=== PATIENT | male | born 1935 | race Caucasian/White ===

== ENCOUNTER 2020-11-05 14:56 | Emergency (ER) | payer MEDICARE, OTHER, SELFPAY ==
[2020-11-05] VITALS (22 sets, daily range): BP systolic 127–139; BP diastolic 67–74; PULSE 64–99; RESP 20; TEMP 36.6; O2SAT 92–97
--- NOTE | 2020-11-05 15:15 | RT.EKG_ITS ---
APPROVED REPORT Exam: Resting ECG Reason for Exam: weakness Patient Location: E HR:65 bpm ECG Measurements Heart Rate 65 AXIS IN 171 P 54 QRSd 72 QRS 35 QT 362 T 47 QTc 377 Conclusion Sinus rhythm...normal P axis, V-rate 60- 99. No STEMI. I have reviewed and interpreted ECG and agree with software generated interpretation.
--- NOTE | 2020-11-05 15:35 | ED.GENADUL_ITS ---
Discharge Plan Disposition Patient Disposition: HOME Condition: Good Discharge Details Clinical Impression: H/O tinea cruris Primary Care Provider: None,None ED Provider: Ave Zambrano Home Meds and New Rx's Prescriptions: New nystatin 100,000 unit/gram powder 1 applic topical DAILY Qty: 60 RF: 0 No Action tamsulosin 0.4 MG capsule 0.4 mg PO DAILY RF: 0 Fish Oil 1 EACH capsule 1 ea PO BID RF: 0 pimecrolimus [Elidel] 30 GM cream 30 gm Topical DAILY PRNRF: 0 latanoprost 0.005 % Drops 1 drp ophthalmic (eye) DAILY RF: 0 dorzolamide 2 % Drops 1 drp ophthalmic (eye) DAILY RF: 0 Discharge Instructions Additional Instructions: Allow to air dry, wear brief with some gauze protecting the area when ambulating, limit your ambulation Use powder twice daily Use cream twice daily Return with spreading redness, fever, worsening pain, if you have rebleeding, apply pressure to the area and return if you are unable to resolve it Recheck with your primary care physician in 48 hours Discharge Data Discharge Date/Time-TO BE ENTERED AT DEPARTURE: 11/05/20 17:10 Medical Decision Making <ZAID Meyers - Last Filed: 11/06/20 19:03> Patient is alert, oriented, very pleasant, he is stable without active bleeding at time of my evaluation, so I discussed sources from the maceration He is instructed to let area air dry, pH was ordered for patient to apply twice daily He will need recheck in 48 hours by his primary care physician, will also prescribe nystatin powder for patient He should refrain from ambulating as much as possible until the wound improved, brief may be helpful with some called applied that should be changed several times daily Threshold to return given the threshold to return with new or worsening complaints Observed for 2 hours in the emergency room No history of coagulopathy, no clinical evidence of Ness's gangrene or peewee lulitis, no evidence of GI bleed or UTI clinically signed out to Ave Zambrano pending EKG and dispo Medical Records Medical records reviewed: Yes I reviewed the patient's medical records. Lab Data Lab results reviewed: Yes I reviewed the patient's lab results. <Ave Zambrano - Last Filed: 11/05/20 19:24> 1620: Care assumed from provider (ZAID Meyers) Discussed patient details and case and pending workup and disposition. Patient is hemodynamically stable, and alert and oriented. Awaiting EKG reassessment and disposition. Patient reevaluation he has no complaints at this time he feels much improved. He is tolerating p.o. fluids without difficulty he is alert and oriented. Discussed plan of care. RN at bedside applying clotrimazole cream at this time. EKG was reviewed by Nora Rico DO ER attending, official report. No old EKG available for review. No complaints of chest pain. Patient discharged in hemodynamically stable condition alert and oriented. Discussed strict return instructions and follow-up with PCP, verbalized understanding. HPI <ZAID Meyers - Last Filed: 11/06/20 19:03> General Mode of arrival: ambulatory . Date/Time Provider Initiated Documentation: 11/05/20 15:01 . Limitations to Documentation: no limitations . Information obtained by: patient . HPI Narrative: This 84-year-old gentleman presents with report of bleeding from his scrotum. Patient denies chest pain or shortness of breath. He denies any dizziness mild lightheadedness. He reportedly started bleeding after using a rest stop on the way up to his home in [facility]. He denies prior history of similar symptoms in the past. He denies any blood in his urine. He denies any blood in his stool. He denies any abdominal tenderness. He states he did bleed a fair amount, he is unsure as to how much. He states that it seems to have stopped at this time. Related Data Home Medications Medication Instructions Recorded Confirmed omega-3 fatty acids-fish oil [Fish 1 ea PO BID 10/12/13 11/05/20 Oil 1,000 mg Capsule] tamsulosin 0.4 mg PO DAILY 10/12/13 11/05/20 pimecrolimus [Elidel] 30 gm TOPICAL DAILY PRN 11/22/13 11/05/20 dorzolamide 1 drp OPHTHALMIC (EYE) DAILY 11/05/20 11/05/20 latanoprost 1 drp OPHTHALMIC (EYE) DAILY 11/05/20 11/05/20 nystatin 1 applic TOPICAL DAILY #60 g 11/05/20 Previous Rx's Medication Instructions Recorded nystatin 1 applic TOPICAL DAILY #60 g 11/05/20 Allergies Allergy/AdvReac Type Severity Reaction Status Date / Time Sulfa (Sulfonamide Allergy Unknown Unverified 11/05/20 15:03 Antibiotics) General Stated Complaint: Male Reproductive Problem VERONA: 3 Review of Systems <ZAID Meyers Last Filed: 11/06/20 19:03> All systems reviewed & are unremarkable except as noted in HPI and below PFSH <ZAID Meyers Last Filed: 11/06/20 19:03> Social History Smoking/Tobacco Use Status: Never Smoking risk assessment performed?: Yes Alcohol Intake: never Drug use: Never Substance use type: does not use Do you feel safe at home: Yes Do you feel safe in your relationship?: Yes Exam <ZAID Meyers Last Filed: 11/06/20 19:03> Const General: cooperative, comfortable and no acute distress Eyes Sclera: sclerae normal Resp Effort & Inspection: normal respiratory effort Auscultation: clear to auscultation bilaterally Cardio Rate: regular rate Rhythm: regular rhythm GI Other: No tenderness or visible sign of trauma Other: Macerated and excoriated region to right inguinal region and groin, tenderness over area of maceration, no evidence of cellulitis, new bleeding around urethra, no blood noted in stool, no obvious hemorrhoid No crepitus or visible evidence of Ness's gangrene Skin Other: Macerated lesion Neuro General: patient alert Extrem Other: No visual evidence of trauma or active bleeding Course <ZAID Meyers Last Filed: 11/06/20 19:03> Vital Signs Vital signs: Vital Signs Temperature 36.6 C 11/05/20 14:58 Pulse 99 H 11/05/20 14:58 Respiratory Rate 20 11/05/20 14:58 Blood Pressure 138/74 11/05/20 14:58 Pulse Oximetry 96 11/05/20 14:58 Temperature 36.6 C 11/05/20 14:58 Temperature Source Skin 11/05/20 14:58 Pulse 99 H 11/05/20 14:58 Respiratory Rate 20 11/05/20 14:58 Respiratory Effort Non-Labored 11/05/20 15:01 Blood Pressure 138/74 11/05/20 14:58 Blood Pressure Position Supine 11/05/20 14:58 Pulse Oximetry 96 11/05/20 14:58 Oxygen Delivery Method Room Air 11/05/20 14:58 Oxygen Flow Rate 0 11/05/20 14:58 Pain Level 0 11/05/20 14:58 Sign Out <ZAID Meyers - Last Filed: 11/06/20 19:03> Sign Out Data: Sign Out Comment: pending ekg, reassessment and dc Last updated by Radha Nickerson PA at 11/05/20 16:16
[2020-11-05 15:40] LABS: Anion Gap 7.7 mmol/L (3-11); BUN 26 mg/dL (7-18); CO2 25.3 mmol/L (21.0-32.0); Calcium 8.8 mg/dL (8.5-10.1); Chloride 107 mmol/L (98-107); Glucose 130 mg/dL (74-106); Potassium 3.9 mmol/L (3.5-5.1); Sodium 140 mmol/L (136-145)
[2020-11-05] MEDS: Normal Saline 500 ML IV (15:40)
[2020-11-05 15:41] LABS: Abs Immature Grans 0.02 10^3/uL (0.0-0.06); Absolute Basophil Count 0.07 10^3/uL (0.0-0.2); Absolute Lymphocyte Count 2.75 10^3/uL (1.2-3.4); Absolute Monocyte Count 0.63 10^3/uL (0.1-0.8); Absolute Neutrophil Count 5.48 10^3/uL (1.2-6.7); Basophils % 0.8; Eosinophils % 3.2; HCT 42.1 % (40.0-50.0); HGB 14.3 g/dL (13.5-17.5); Immature Grans % 0.2; Lymphocytes % 29.7; MCH 29.8 pg (27.0-33.0); MCV 87.7 fL (80-95); Monocytes % 6.8; Neutrophils % 59.3; Nucleated RBC 0 %; Platelet Count 186 10^3/uL (130-400); RDW 13.2 % (11.8-14.1); RDW-SD 42.5 fL; WBC 9.25 10^3/uL (4.4-10.8)
== END 2020-11-05 17:10 | disposition home or self-care (01) ==
LOC: ER 17:20
PROVIDERS: Physician Assistant; Emergency Provider Registered Nurse Emergency
DX: B35.6 Tinea cruris (principal)
CPT/HCPCS: 36415; 80048; 93005; 96360; 99284; 85025; 93010; 99283